=== PATIENT | female | born 1980 | race Caucasian/White ===

== ENCOUNTER 2020-06-14 17:58 | Emergency (ER) | payer SELFPAY ==
[~2020-06-14] VITALS: Ht 165.1 cm; Wt 53.5 kg
[2020-06-14 18:11] VITALS: BP 109/49
[2020-06-14 19:20] VITALS: BP 102/39
== END 2020-06-14 19:20 | disposition home or self-care (01) ==
LOC: MED 17:58
DX: R00.2 Palpitations (principal); E03.9 Hypothyroidism, unspecified
CPT/HCPCS: 93005; 99283

== ENCOUNTER 2023-06-16 17:28 | Emergency (ER) | payer MEDICAID, OTHER ==
[~2023-06-16] VITALS: Ht 162.6 cm; Wt 61.2 kg
[2023-06-16 17:39] VITALS: BP 114/75; PULSE 80; RESP 17; TEMP 97.4; O2SAT 98
[2023-06-16] MEDS ORDERED: ONDA-188 SL (18:24)
[2023-06-16] MEDS ORDERED: CAPS1ADH5 TP (18:24)
[2023-06-16] MEDS ORDERED: IBUP-1842 PO (18:24)
[2023-06-16] MEDS ORDERED: IBUPROFEN 600 MG TAB PO ONE (18:25)
[2023-06-16] MEDS ORDERED: ONDANSETRON 4 MG ODT PO ONE (18:25)
[2023-06-16 18:45] VITALS: BP 114/75; PULSE 80; RESP 17; TEMP 97.4; O2SAT 98
== END 2023-06-16 18:45 | disposition home or self-care (01) ==
LOC: MED 17:28
DX: S16.1XXA Strain of muscle, fascia and tendon at neck level, initial encounter (principal); S06.0X0A Concussion without loss of consciousness, initial encounter; V49.88XA Car occupant (driver) (passenger) injured in other specified transport accidents, initial encounter; Y93.89 Activity, other specified; Y92.89 Other specified places as the place of occurrence of the external cause; Y99.8 Other external cause status
CPT/HCPCS: 99283; Q0162